=== PATIENT | male | born 1970 | race African-American/Black ===

== ENCOUNTER 2021-02-12 20:57 | Inpatient (IN) | payer OTHER ==
[2021-02-12 21:43] VITALS: BMI 21.2
[2021-02-12] MEDS ORDERED: MAGNESIUM CITRATE 300 ML BOTTLE PO PRN (23:26)
[2021-02-12] MEDS ORDERED: IBUPROFEN 400 MG TABLET (FP) PO PRN (23:26)
[2021-02-12] MEDS ORDERED: METHOCARBAMOL 500 MG TABLET PO PRN (23:26)
[2021-02-12] MEDS ORDERED: MAG HYDROX/AL HYDROX/SIMETH 30 ML UNIT-DOSE CUP PO PRN (23:26)
[2021-02-12] MEDS ORDERED: ONDANSETRON *ODT* 4 MG TABLET SL PRN (23:26)
[2021-02-12] MEDS ORDERED: MENTHOL/PHENOL 1 EACH UD MM PRN (23:26)
[2021-02-12] MEDS ORDERED: MAGNESIUM HYDROX 2400MG/30ML ORAL SUSPENSION 30 ML CUP PO PRN (23:26)
[2021-02-12] MEDS ORDERED: BISMUTH SUBSALICYLATE 524 MG/30 ML PO PRN (23:26)
[2021-02-12] MEDS ORDERED: hydrOXYzine PAMOATE 25 MG CAPSULE (FP) PO PRN (23:26)
[2021-02-12] MEDS ORDERED: ACETAMINOPHEN 325 MG TABLET (FP) PO PRN ×2 (23:26)
[2021-02-13] MEDS: PRENATAL VITAMINS W/ FOLIC ACID TABLET (FP) PO SCH (09:56)
[2021-02-13] MEDS ORDERED: cloNIDine HCL 0.1 MG TABLET PO PRN (15:45)
[2021-02-13] MEDS ORDERED: METHADONE HCL 10 MG TABLET (FOR DETOX USE ONLY) PO ONE (15:45)
[2021-02-13] MEDS: THIAMINE HCL 100 MG TABLET (FP) PO SCH (22:59)
[2021-02-13] MEDS: MELATONIN 5 MG TABLETS PO SCH (22:59)
[2021-02-14] MEDS ORDERED: METHADONE HCL 10 MG TABLET (FOR DETOX USE ONLY) ONE (09:43)
[2021-02-14] MEDS ORDERED: METHADONE HCL 5 MG TABLET (FOR DETOX USE ONLY) ONE (09:44)
[2021-02-14] MEDS ORDERED: METHADONE (DETOX) 20 MG, METHADONE (DETOX) 5 MG PO ONE (10:00)
[2021-02-14] MEDS: PRENATAL VITAMINS W/ FOLIC ACID TABLET (FP) PO SCH (10:14)
[2021-02-14] MEDS: THIAMINE HCL 100 MG TABLET (FP) PO SCH (22:14)
[2021-02-14] MEDS: MELATONIN 5 MG TABLETS PO SCH (22:14)
[2021-02-15] MEDS ORDERED: METHADONE HCL 10 MG TABLET (FOR DETOX USE ONLY) PO ONE (10:00)
[2021-02-15] MEDS: PRENATAL VITAMINS W/ FOLIC ACID TABLET (FP) PO SCH (10:13)
[2021-02-15 14:40] LABS: HEMOGLOBIN 10.2 GM/dL (11.7-16.9); MEAN CELL VOLUME 66.6 fl (80-96); MEAN PLT VOLUME 7.4 fl (7.5-11.1); PLATELET COUNT 567 K/MM3 (134-434); RDW 20.1 % (11.9-15.9); WHITE BLOOD COUNT 6.5 K/mm3 (4.0-10.0)
[2021-02-15 14:42] LABS: CHLORIDE 108 mmol/L (98-107); SODIUM 141 mmol/L (136-145)
[2021-02-15 14:45] LABS: ALBUMIN 3.2 g/dl (3.4-5.0); ANION GAP 6 MMOL/L (8-16); BLOOD UREA NITROGEN 17.2 mg/dL (7-18); CALCIUM 8.7 mg/dL (8.5-10.1); CO2 27 mmol/L (21-32); GLUCOSE,RANDOM 116 mg/dL (74-106)
[2021-02-15 14:48] LABS: CREATININE 0.9 mg/dL (0.55-1.3); SGOT/AST 10 U/L (15-37); SGPT/ALT 17 U/L (13-61)
[2021-02-15 14:50] LABS: BILIRUBIN,TOTAL < 0.1 mg/dL (0.2-1); TOT PROT 6.5 g/dl (6.4-8.2)
[2021-02-15 14:51] LABS: ALK PHOS 89 U/L (45-117)
[2021-02-15] MEDS ORDERED: MASKS NR ONE (15:13)
[2021-02-15] MEDS: THIAMINE HCL 100 MG TABLET (FP) PO SCH (23:05)
[2021-02-15] MEDS: MELATONIN 5 MG TABLETS PO SCH (23:06)
[2021-02-16 04:07] LABS: SARS-CoV-2 NAA Not Detected (Not Detected)
[2021-02-16] MEDS ORDERED: METHADONE HCL 5 MG TABLET (FOR DETOX USE ONLY) ONE (09:39)
[2021-02-16] MEDS ORDERED: METHADONE HCL 10 MG TABLET (FOR DETOX USE ONLY) ONE (09:39)
[2021-02-16] MEDS ORDERED: METHADONE (DETOX) 10 MG, METHADONE (DETOX) 5 MG PO ONE (10:00)
[2021-02-16] MEDS: PRENATAL VITAMINS W/ FOLIC ACID TABLET (FP) PO SCH (10:42)
[2021-02-16] MEDS: THIAMINE HCL 100 MG TABLET (FP) PO SCH (22:07)
[2021-02-16] MEDS: MELATONIN 5 MG TABLETS PO SCH (22:07)
[2021-02-17] MEDS ORDERED: METHADONE HCL 10 MG TABLET (FOR DETOX USE ONLY) PO ONE (10:00)
[2021-02-17] MEDS: PRENATAL VITAMINS W/ FOLIC ACID TABLET (FP) PO SCH (10:35)
[2021-02-17] MEDS: MELATONIN 5 MG TABLETS PO SCH (22:07)
[2021-02-17] MEDS: THIAMINE HCL 100 MG TABLET (FP) PO SCH (22:07)
[2021-02-18 05:44] VITALS: BP 136/65; PULSE 82; TEMP 96.4
[2021-02-18] MEDS ORDERED: METHADONE HCL 5 MG TABLET (FOR DETOX USE ONLY) PO ONE (06:00)
== END 2021-02-18 10:03 | disposition other institution (70) | DRG 773 ==
LOC: YASAS 20:57 → Y3N 23:30
PROVIDERS: ADMIT Allergy & Immunology; ATTEND Allergy & Immunology
PROC: HZ2ZZZZ Detoxification Services for Substance Abuse Treatment (ICD-10-PCS; principal; 2021-02-12)
DX: F11.23 Opioid dependence with withdrawal (principal); F10.10 Alcohol abuse, uncomplicated; F14.20 Cocaine dependence, uncomplicated; F19.220 Other psychoactive substance dependence with intoxication, uncomplicated
CPT/HCPCS: 36415; 80053; 85027; 86593; 86780; C9803; U0003; U0005

== ENCOUNTER 2022-07-04 00:05 | Inpatient (IN) | payer OTHER ==
[2022-07-04] MEDS ORDERED: VANCOMYCIN 1 GM in D5W (PRE-DOCKED) 1,000 MG/250 ML IVPB ONE (01:23)
[2022-07-04 02:22] LABS: BASO % 2.1 % (0-2.0); EOS % 3.1 % (0-4.5); HEMATOCRIT 32.5 % (35.4-49); HEMOGLOBIN 9.9 GM/dL (11.7-16.9); LYMPH % 22.9 % (8-40); MCH 20.1 pg (25.7-33.7); MCHC 30.6 g/dl (32.0-35.9); MEAN CELL VOLUME 65.7 fl (80-96); MEAN PLT VOLUME 6.8 fl (7.5-11.1); MONO % 6.8 % (3.8-10.2); NEUT % 65.1 % (42.8-82.8); PLATELET COUNT 683 10^3/uL (134-434); RBC 4.95 M/mm3 (4.00-5.60); RDW 19.3 % (11.9-15.9); WHITE BLOOD COUNT 8.2 K/mm3 (4.0-10.0)
[2022-07-04] MEDS ORDERED: VANCOMYCIN/WATER 1,250 MG/250 ML BAG IVPB ONE (02:35)
[2022-07-04] MEDS ORDERED: VANCOMYCIN/WATER 1250 MG 1,250 MG/250 ML BAG IVPB ONE (02:42)
[2022-07-04 02:44] LABS: ALBUMIN 2.5 g/dl (3.4-5.0); CALCIUM 8.1 mg/dL (8.5-10.1)
[2022-07-04 02:46] LABS: BLOOD UREA NITROGEN 21.8 mg/dL (7-18)
[2022-07-04 02:47] LABS: CREATININE 1.3 mg/dL (0.55-1.3)
[2022-07-04 02:49] LABS: BILIRUBIN,TOTAL 0.2 mg/dL (0.2-1); TOT PROT 5.7 g/dl (6.4-8.2)
[2022-07-04 05:12] LABS: ANISOCYTOSIS 2+; MACROCYTOSIS 0; OVALOCYTE 2+; TARGET CELLS 2+; TEAR DROP CELLS 1+
[2022-07-04] MEDS ORDERED: LORazepam 1 MG TABLET PO PRN (06:37)
[2022-07-04] MEDS ORDERED: LORazepam 1 MG TABLET PO SCH (06:37)
[2022-07-04] MEDS ORDERED: ACETAMINOPHEN 1000 MG/100 ML BAG IVPB PRN ×3 (08:33→10:46)
[2022-07-04] MEDS ORDERED: DEXTROSE 5%-LACTATED RINGERS 1,000 ML IV SCH (08:45)
[2022-07-04] MEDS ORDERED: morphine CARPU-JECT 2 MG/1 ML DISP.SYRIN IVPUSH PRN (09:32)
[2022-07-04] MEDS ORDERED: morphine SULFATE 4 MG/ML VIAL IVPUSH PRN (09:56)
[2022-07-04] MEDS ORDERED: MAGNESIUM CITRATE 300 ML BOTTLE PO PRN (10:41)
[2022-07-04] MEDS ORDERED: BENZOCAINE/MENTHOL (CHLORASEPTIC ) LOZENGE MM PRN (10:41)
[2022-07-04] MEDS ORDERED: MAG HYDROX/AL HYDROX/SIMETH 30 ML UNIT-DOSE CUP PO PRN (10:41)
[2022-07-04] MEDS ORDERED: PROCHLORPERAZINE MALEATE 5 MG TABLET PO PRN (10:41)
[2022-07-04] MEDS ORDERED: MAGNESIUM HYDROX 2400MG/30ML ORAL SUSPENSION 30 ML CUP PO PRN (10:41)
[2022-07-04] MEDS ORDERED: DICYCLOMINE HCL 10 MG CAPSULE PO PRN (10:41)
[2022-07-04] MEDS ORDERED: BISMUTH SUBSALICYLATE 524 MG/30 ML PO PRN (10:41)
[2022-07-04] MEDS ORDERED: KETOROLAC TROMETHAMINE 15 MG/ML VIAL IVPUSH PRN (10:44)
[2022-07-04 11:11] LABS: RETICULOCYTES 1.28 % (0.5-1.5)
[2022-07-04] MEDS ORDERED: cloNIDine HCL 0.1 MG TABLET PO PRN (12:39)
[2022-07-04] MEDS ORDERED: methaDONE HCL 10 MG TABLET ONE (16:57)
[2022-07-04] MEDS ORDERED: ceFAZolin SODIUM 1 GM VIAL ONE (16:58)
[2022-07-04] MEDS ORDERED: methaDONE HCL 10 MG TABLET PO ONE (17:00)
[2022-07-04] MEDS: CEFAZOLIN 1 GM in DEXTROSE 5%-WATER - 50 ML IVPB SCH (17:09)
[2022-07-04] MEDS ORDERED: THIAMINE HCL 100 MG TABLET (FP) ONE (22:04)
[2022-07-04] MEDS ORDERED: MELATONIN 5 MG TABLETS ONE (22:04)
[2022-07-04] MEDS: THIAMINE HCL 100 MG TABLET (FP) PO SCH (22:12)
[2022-07-04] MEDS: MELATONIN 5 MG TABLETS PO SCH (22:12)
[2022-07-05] MEDS: CEFAZOLIN 1 GM in DEXTROSE 5%-WATER - 50 ML IVPB SCH ×3 (03:30→17:19)
[2022-07-05 04:34] VITALS: BMI 22.8
[2022-07-05] MEDS ORDERED: LORazepam 1 MG TABLET PO SCH (05:00)
[2022-07-05] MEDS: PRENATAL VITAMINS W/ FOLIC ACID TABLET (FP) PO SCH (09:17)
[2022-07-05] MEDS ORDERED: VANCOMYCIN/WATER 1,250 MG/250 ML BAG IVPB SCH (10:00)
[2022-07-05 11:47] LABS: HEMATOCRIT 32.3 % (35.4-49); HEMOGLOBIN 9.8 GM/dL (11.7-16.9); MCHC 30.5 g/dl (32.0-35.9); MEAN CELL VOLUME 65.7 fl (80-96); PLATELET COUNT 698 10^3/uL (134-434); RBC 4.92 M/mm3 (4.00-5.60); RDW 18.9 % (11.9-15.9); WHITE BLOOD COUNT 8.2 K/mm3 (4.0-10.0)
[2022-07-05 12:09] LABS: CALCIUM 7.9 mg/dL (8.5-10.1)
[2022-07-05 12:10] LABS: BLOOD UREA NITROGEN 18.7 mg/dL (7-18); MAGNESIUM 1.8 mg/dL (1.8-2.4)
[2022-07-05 12:13] LABS: CREATININE 0.9 mg/dL (0.55-1.3); PHOSPHOROUS 2.4 mg/dL (2.5-4.9)
[2022-07-05] MEDS ORDERED: NAPH,MB-DB/K PH,MBDB POWDER PACKET PO ONE (13:21)
[2022-07-05 18:32] LABS: ANISOCYTOSIS 2+; MACROCYTOSIS 0; TARGET CELLS 1+
[2022-07-05] MEDS: THIAMINE HCL 100 MG TABLET (FP) PO SCH (21:40)
[2022-07-05] MEDS: MELATONIN 5 MG TABLETS PO SCH (21:40)
[2022-07-06] MEDS ORDERED: LORazepam 0.5 MG TABLET PO PRN
[2022-07-06] MEDS: CEFAZOLIN 1 GM in DEXTROSE 5%-WATER - 50 ML IVPB SCH ×3 (01:31→18:20)
[2022-07-06] MEDS ORDERED: LORazepam 0.5 MG TABLET PO SCH (05:00)
[2022-07-06 09:36] LABS: HEMATOCRIT 32.3 % (35.4-49); HEMOGLOBIN 9.8 GM/dL (11.7-16.9); MCH 20.1 pg (25.7-33.7); MCHC 30.4 g/dl (32.0-35.9); MEAN CELL VOLUME 66.2 fl (80-96); MEAN PLT VOLUME 7.1 fl (7.5-11.1); PLATELET COUNT 645 10^3/uL (134-434); RBC 4.89 M/mm3 (4.00-5.60); RDW 19.2 % (11.9-15.9); WHITE BLOOD COUNT 7.4 K/mm3 (4.0-10.0)
[2022-07-06 09:53] LABS: ALBUMIN 2.2 g/dl (3.4-5.0)
[2022-07-06 09:55] LABS: BLOOD UREA NITROGEN 15.3 mg/dL (7-18); CALCIUM 7.8 mg/dL (8.5-10.1); MAGNESIUM 1.9 mg/dL (1.8-2.4)
[2022-07-06 09:56] LABS: PHOSPHOROUS 3.2 mg/dL (2.5-4.9)
[2022-07-06 09:57] LABS: BILIRUBIN,TOTAL 0.2 mg/dL (0.2-1); TOT PROT 5.4 g/dl (6.4-8.2)
[2022-07-06] MEDS ORDERED: methaDONE HCL 10 MG TABLET PO ONE (10:00)
[2022-07-06] MEDS: PRENATAL VITAMINS W/ FOLIC ACID TABLET (FP) PO SCH (10:19)
[2022-07-06] MEDS: ENOXAPARIN NA (PORCINE) 40 MG/0.4 ML DISP.SYRIN SQ SCH ×2 (10:19→10:41)
[2022-07-06] MEDS: THIAMINE HCL 100 MG TABLET (FP) PO SCH (21:33)
[2022-07-06] MEDS: MELATONIN 5 MG TABLETS PO SCH (21:33)
[2022-07-07] MEDS: CEFAZOLIN 1 GM in DEXTROSE 5%-WATER - 50 ML IVPB SCH ×2 (01:47→09:48)
[2022-07-07] MEDS ORDERED: LORazepam 0.5 MG TABLET PO ONE (05:00)
[2022-07-07] MEDS: PRENATAL VITAMINS W/ FOLIC ACID TABLET (FP) PO SCH (09:50)
[2022-07-07] MEDS: ENOXAPARIN NA (PORCINE) 40 MG/0.4 ML DISP.SYRIN SQ SCH (10:07)
[2022-07-07] MEDS ORDERED: IRON SUCROSE INJECTION 200 MG in SODIUM CHLORIDE 90 ML IVPB ONE (14:06)
[2022-07-07 16:10] LABS: HEMATOCRIT 30.2 % (35.4-49); HEMOGLOBIN 9.5 GM/dL (11.7-16.9); MCH 20.7 pg (25.7-33.7); MCHC 31.6 g/dl (32.0-35.9); MEAN CELL VOLUME 65.5 fl (80-96); MEAN PLT VOLUME 6.6 fl (7.5-11.1); PLATELET COUNT 623 10^3/uL (134-434); RBC 4.62 M/mm3 (4.00-5.60); RDW 19.1 % (11.9-15.9); WHITE BLOOD COUNT 8.3 K/mm3 (4.0-10.0)
[2022-07-07 16:32] LABS: CALCIUM 8.1 mg/dL (8.5-10.1)
[2022-07-07 16:33] LABS: ALBUMIN 2.4 g/dl (3.4-5.0); BLOOD UREA NITROGEN 21.1 mg/dL (7-18)
[2022-07-07 16:38] LABS: BILIRUBIN,TOTAL 0.1 mg/dL (0.2-1); TOT PROT 5.7 g/dl (6.4-8.2)
[2022-07-07] MEDS: THIAMINE HCL 100 MG TABLET (FP) PO SCH (22:18)
[2022-07-07] MEDS: MELATONIN 5 MG TABLETS PO SCH (22:18)
[2022-07-08 00:52] LABS: PROTHROMBIN TIME (PATIENT) 11.5 SEC (9.7-13.0)
[2022-07-08 00:55] LABS: ACTIVATED PTT 30.8 SECONDS (25.2-36.5)
[2022-07-08] MEDS: PRENATAL VITAMINS W/ FOLIC ACID TABLET (FP) PO SCH (09:42)
[2022-07-08] MEDS: ENOXAPARIN NA (PORCINE) 40 MG/0.4 ML DISP.SYRIN SQ SCH (09:42)
[2022-07-08] MEDS ORDERED: methaDONE HCL 10 MG TABLET PO ONE (10:00)
[2022-07-08] MEDS ORDERED: ROPIVACAINE HCL 0.5% 30ML VIAL ONE (14:30)
[2022-07-08] MEDS ORDERED: MIDAZOLAM HCL 2 MG/2 ML SINGLE DOSE VIAL ONE (14:35)
[2022-07-08] MEDS ORDERED: PROPOFOL 20 ML ONE ×4 (15:09→16:21)
[2022-07-08] MEDS ORDERED: ceFAZolin SODIUM 1 GM VIAL ONE ×2 (15:19→15:42)
[2022-07-08] MEDS ORDERED: ceFAZolin SODIUM 1 GM VIAL IVPB ONE ×2 (15:20→15:45)
[2022-07-08] MEDS ORDERED: BENZOCAINE/MENTHOL (CHLORASEPTIC ) LOZENGE MM PRN (17:14)
[2022-07-08] MEDS ORDERED: ONDANSETRON 4 MG/2 ML VIAL IVPUSH PRN (17:14)
[2022-07-08] MEDS ORDERED: MAGNESIUM HYDROX 2400MG/30ML ORAL SUSPENSION 30 ML CUP PO PRN (17:14)
[2022-07-08] MEDS ORDERED: MAG HYDROX/AL HYDROX/SIMETH 30 ML UNIT-DOSE CUP PO PRN (17:14)
[2022-07-08] MEDS ORDERED: PROCHLORPERAZINE MALEATE 5 MG TABLET PO PRN (17:14)
[2022-07-08] MEDS ORDERED: PROMETHAZINE HCL 25 MG/1 ML VIAL IVPUSH PRN (17:14)
[2022-07-08] MEDS ORDERED: DICYCLOMINE HCL 10 MG CAPSULE PO PRN (17:14)
[2022-07-08] MEDS ORDERED: MAGNESIUM CITRATE 300 ML BOTTLE PO PRN (17:14)
[2022-07-08] MEDS ORDERED: LACTATED RINGERS SOLUTION 1,000 ML IV SCH (17:15)
[2022-07-08] MEDS: MELATONIN 5 MG TABLETS PO SCH (21:14)
[2022-07-08] MEDS: THIAMINE HCL 100 MG TABLET (FP) PO SCH (21:14)
[2022-07-08] MEDS: ACETAMINOPHEN 1000 MG/100 ML BAG IVPB PRN (22:33)
[2022-07-08] MEDS: CEFAZOLIN SODIUM 2 GM in DEXTROSE 5%-WATER 100 ML IVPB SCH (22:37)
[2022-07-08] MEDS ORDERED: ceFAZolin 2 GRAM PREMIX BAG IVPB SCH (23:00)
[2022-07-09] MEDS: ACETAMINOPHEN 1000 MG/100 ML BAG IVPB PRN ×2 (05:05→11:40)
[2022-07-09] MEDS: CEFAZOLIN SODIUM 2 GM in DEXTROSE 5%-WATER 100 ML IVPB SCH (06:14)
[2022-07-09 11:02] LABS: BASO % 0.8 % (0-2.0); EOS % 0.7 % (0-4.5); HEMATOCRIT 32.9 % (35.4-49); HEMOGLOBIN 9.9 GM/dL (11.7-16.9); LYMPH % 9.1 % (8-40); MEAN PLT VOLUME 6.8 fl (7.5-11.1); MONO % 9.5 % (3.8-10.2); NEUT % 79.9 % (42.8-82.8); PLATELET COUNT 706 10^3/uL (134-434); RBC 4.99 M/mm3 (4.00-5.60); RDW 19.2 % (11.9-15.9); WHITE BLOOD COUNT 14.6 K/mm3 (4.0-10.0)
[2022-07-09 11:07] LABS: MCH 19.8 pg (25.7-33.7)
[2022-07-09 11:26] LABS: ALBUMIN 2.8 g/dl (3.4-5.0); BLOOD UREA NITROGEN 16.6 mg/dL (7-18); CALCIUM 8.4 mg/dL (8.5-10.1)
[2022-07-09 11:27] LABS: MAGNESIUM 1.6 mg/dL (1.8-2.4)
[2022-07-09 11:29] LABS: CREATININE 0.9 mg/dL (0.55-1.3); PHOSPHOROUS 2.3 mg/dL (2.5-4.9)
[2022-07-09 11:30] LABS: BILIRUBIN,TOTAL 0.2 mg/dL (0.2-1); TOT PROT 6.2 g/dl (6.4-8.2)
[2022-07-09] MEDS: PRENATAL VITAMINS W/ FOLIC ACID TABLET (FP) PO SCH (11:40)
[2022-07-09] MEDS: ENOXAPARIN NA (PORCINE) 40 MG/0.4 ML DISP.SYRIN SQ SCH (11:42)
[2022-07-09 11:58] LABS: ANISOCYTOSIS 3+; MACROCYTOSIS 0; TARGET CELLS 2+
[2022-07-09] MEDS ORDERED: SODIUM PHOSPHATE - 20 MM in SODIUM CHLORIDE 250 ML IVPB ONE (17:47)
[2022-07-09] MEDS ORDERED: MAGNESIUM 1GM/D5W 100ML - 100 ML IVPB IVPB ONE (17:49)
[2022-07-09] MEDS: THIAMINE HCL 100 MG TABLET (FP) PO SCH (21:19)
[2022-07-09] MEDS: MELATONIN 5 MG TABLETS PO SCH (21:19)
[2022-07-10] MEDS: ENOXAPARIN NA (PORCINE) 40 MG/0.4 ML DISP.SYRIN SQ SCH (10:11)
[2022-07-10] MEDS: PRENATAL VITAMINS W/ FOLIC ACID TABLET (FP) PO SCH (10:12)
[2022-07-10 10:32] LABS: BASO % 0.6 % (0-2.0); EOS % 1.4 % (0-4.5); HEMATOCRIT 32.4 % (35.4-49); HEMOGLOBIN 9.8 GM/dL (11.7-16.9); MCHC 30.4 g/dl (32.0-35.9); MEAN CELL VOLUME 65.9 fl (80-96); MEAN PLT VOLUME 6.9 fl (7.5-11.1); MONO % 10.6 % (3.8-10.2); NEUT % 77.4 % (42.8-82.8); PLATELET COUNT 740 10^3/uL (134-434); RBC 4.92 M/mm3 (4.00-5.60); RDW 19.1 % (11.9-15.9); WHITE BLOOD COUNT 15.1 K/mm3 (4.0-10.0)
[2022-07-10 11:02] LABS: ALBUMIN 2.7 g/dl (3.4-5.0); BLOOD UREA NITROGEN 11.7 mg/dL (7-18)
[2022-07-10 11:03] LABS: CALCIUM 8.4 mg/dL (8.5-10.1); MAGNESIUM 2.1 mg/dL (1.8-2.4)
[2022-07-10 11:05] LABS: CREATININE 0.8 mg/dL (0.55-1.3); PHOSPHOROUS 2.9 mg/dL (2.5-4.9)
[2022-07-10 11:07] LABS: BILIRUBIN,TOTAL 0.3 mg/dL (0.2-1); TOT PROT 6.5 g/dl (6.4-8.2)
[2022-07-10 15:12] LABS: ALBUMIN % 0 % (.); TOTAL PROTEIN, URINE <4.0 mg/dL (Not Estab.)
[2022-07-10] MEDS: THIAMINE HCL 100 MG TABLET (FP) PO SCH (22:39)
[2022-07-10] MEDS: MELATONIN 5 MG TABLETS PO SCH (22:39)
[2022-07-11 09:01] VITALS: PULSE 101; RESP 18
[2022-07-11] MEDS: PRENATAL VITAMINS W/ FOLIC ACID TABLET (FP) PO SCH (13:54)
[2022-07-11] MEDS: ENOXAPARIN NA (PORCINE) 40 MG/0.4 ML DISP.SYRIN SQ SCH (13:54)
[2022-07-11 15:33] VITALS: BP 126/70; TEMP 98
== END 2022-07-11 16:55 | disposition other institution (70) | DRG 315 ==
LOC: JER 00:05 → JERBED 05:11 → J5S 07-05 02:46
PROVIDERS: ADMIT Internal Medicine; ATTEND Internal Medicine
PROC: 2W3LX1Z Immobilization of Right Lower Extremity using Splint (ICD-10-PCS; 2022-07-04)
PROC: 0PSH04Z Reposition Right Radius with Internal Fixation Device, Open Approach (ICD-10-PCS; principal; 2022-07-08 15:25)
DX: S52.391A Other fracture of shaft of radius, right arm, initial encounter for closed fracture (principal); L03.113 Cellulitis of right upper limb; F11.120 Opioid abuse with intoxication, uncomplicated; D75.839 Thrombocytosis, unspecified; M21.331 Wrist drop, right wrist; D50.9 Iron deficiency anemia, unspecified; H02.401 Unspecified ptosis of right eyelid; F14.10 Cocaine abuse, uncomplicated; Y93.89 Activity, other specified; W19.XXXA Unspecified fall, initial encounter; Y92.89 Other specified places as the place of occurrence of the external cause; Y99.8 Other external cause status
CPT/HCPCS: 36415; 73090-TC-RT-FY; 73110-TC-RT-FY; 73130-TC-RT-FY; 76000-TC-FY; 80048; 80053; 80061; 82272; 82607; 82728; 83021; 83036; 83540; 83550; 83735; 84100; 84155; 84156; 84165; 84166; 85025; 85027; 85045; 85610; 85660; 85730; 86850; 86900; 86901; 87040; 87070; 87075; 87205; 93005; 93010; 94760; 99285-25; C1713; C9803-CS; J1756; U0003; U0005

== ENCOUNTER 2022-07-11 16:52 | Inpatient (IN) | payer OTHER ==
[2022-07-11 17:42] VITALS: BMI 22.6
[2022-07-11] MEDS ORDERED: guaiFENesin 200 MG/10 ML 10 ML UNIT-DOSE CUPS PO PRN (18:04)
[2022-07-11] MEDS ORDERED: MAGNESIUM HYDROX 2400MG/30ML ORAL SUSPENSION 30 ML CUP PO PRN (18:04)
[2022-07-11] MEDS ORDERED: LOPERAMIDE HCL 2 MG CAPSULE PO PRN (18:04)
[2022-07-11] MEDS ORDERED: MAGNESIUM CITRATE 300 ML BOTTLE PO PRN (18:04)
[2022-07-11] MEDS ORDERED: P-EPHED 60MG/TRIPROLIDI 2.5MG TABLET PO PRN (18:04)
[2022-07-11] MEDS ORDERED: ACETAMINOPHEN 325 MG TABLET (FP) PO PRN ×2 (18:04→18:11)
[2022-07-11] MEDS ORDERED: BENZOCAINE/MENTHOL (CHLORASEPTIC ) LOZENGE MM PRN (18:04)
[2022-07-11] MEDS ORDERED: MAG HYDROX/AL HYDROX/SIMETH 30 ML UNIT-DOSE CUP PO PRN (18:04)
[2022-07-11] MEDS: ASPIRIN 81 MG CHEWABLE TABLETS PO SCH (21:33)
[2022-07-11] MEDS: MELATONIN 5 MG TABLETS PO PRN (21:33)
[2022-07-11] MEDS: THIAMINE HCL 100 MG TABLET (FP) PO SCH (21:33)
[2022-07-11] MEDS: FERROUS SO4 325 MG TABLET (FP) PO SCH (21:33)
[2022-07-11] MEDS: SILVER SULFADIAZINE 1% TOP CREAM 400 GM JAR TP SCH (23:00)
[2022-07-12] MEDS: FERROUS SO4 325 MG TABLET (FP) PO SCH ×3 (07:37→16:51)
[2022-07-12] MEDS: PRENATAL VITAMINS W/ FOLIC ACID TABLET (FP) PO SCH (10:13)
[2022-07-12] MEDS: ASPIRIN 81 MG CHEWABLE TABLETS PO SCH (10:14)
[2022-07-12] MEDS: SILVER SULFADIAZINE 1% TOP CREAM 400 GM JAR TP SCH (10:15)
[2022-07-12] MEDS: MELATONIN 5 MG TABLETS PO PRN (21:28)
[2022-07-12] MEDS: THIAMINE HCL 100 MG TABLET (FP) PO SCH (21:28)
[2022-07-13] MEDS: FERROUS SO4 325 MG TABLET (FP) PO SCH ×3 (07:03→17:30)
[2022-07-13] MEDS: IBUPROFEN 400 MG TABLET (FP) PO PRN (11:03)
[2022-07-13] MEDS: PRENATAL VITAMINS W/ FOLIC ACID TABLET (FP) PO SCH (11:03)
[2022-07-13] MEDS: ASPIRIN 81 MG CHEWABLE TABLETS PO SCH (11:03)
[2022-07-13] MEDS: THIAMINE HCL 100 MG TABLET (FP) PO SCH (22:06)
[2022-07-14] MEDS: FERROUS SO4 325 MG TABLET (FP) PO SCH ×3 (07:16→17:35)
[2022-07-14] MEDS: PRENATAL VITAMINS W/ FOLIC ACID TABLET (FP) PO SCH (09:46)
[2022-07-14] MEDS: ASPIRIN 81 MG CHEWABLE TABLETS PO SCH (09:46)
[2022-07-14] MEDS: THIAMINE HCL 100 MG TABLET (FP) PO SCH (21:30)
[2022-07-14] MEDS: MELATONIN 5 MG TABLETS PO PRN (21:30)
[2022-07-15] MEDS: FERROUS SO4 325 MG TABLET (FP) PO SCH ×3 (07:23→17:18)
[2022-07-15] MEDS: ASPIRIN 81 MG CHEWABLE TABLETS PO SCH (11:14)
[2022-07-15] MEDS: PRENATAL VITAMINS W/ FOLIC ACID TABLET (FP) PO SCH (11:14)
[2022-07-15] MEDS: THIAMINE HCL 100 MG TABLET (FP) PO SCH (21:26)
[2022-07-16 07:00] VITALS: RESP 18
[2022-07-16] MEDS: FERROUS SO4 325 MG TABLET (FP) PO SCH ×3 (08:14→17:43)
[2022-07-16] MEDS: ASPIRIN 81 MG CHEWABLE TABLETS PO SCH (09:36)
[2022-07-16] MEDS: PRENATAL VITAMINS W/ FOLIC ACID TABLET (FP) PO SCH (09:36)
[2022-07-16] MEDS: THIAMINE HCL 100 MG TABLET (FP) PO SCH (21:39)
[2022-07-16] MEDS: MELATONIN 5 MG TABLETS PO PRN (21:40)
[2022-07-17] MEDS: FERROUS SO4 325 MG TABLET (FP) PO SCH ×3 (07:14→17:50)
[2022-07-17] MEDS: PRENATAL VITAMINS W/ FOLIC ACID TABLET (FP) PO SCH (10:58)
[2022-07-17] MEDS: ASPIRIN 81 MG CHEWABLE TABLETS PO SCH (10:58)
[2022-07-17] MEDS: THIAMINE HCL 100 MG TABLET (FP) PO SCH (21:08)
[2022-07-18] MEDS: FERROUS SO4 325 MG TABLET (FP) PO SCH ×3 (07:04→17:04)
[2022-07-18] MEDS: ASPIRIN 81 MG CHEWABLE TABLETS PO SCH (09:41)
[2022-07-18] MEDS: PRENATAL VITAMINS W/ FOLIC ACID TABLET (FP) PO SCH (09:41)
[2022-07-18] MEDS: IBUPROFEN 400 MG TABLET (FP) PO PRN (11:32)
[2022-07-18] MEDS: THIAMINE HCL 100 MG TABLET (FP) PO SCH (21:13)
[2022-07-18] MEDS: MELATONIN 5 MG TABLETS PO PRN (21:13)
[2022-07-19 06:40] VITALS: BP 123/82; PULSE 101; TEMP 98.9
[2022-07-19] MEDS: FERROUS SO4 325 MG TABLET (FP) PO SCH (07:01)
== END 2022-07-19 10:05 | disposition home or self-care (01) | DRG 772 ==
LOC: YASAS 16:52 → Y3W 19:25
PROVIDERS: ADMIT Allergy & Immunology; ATTEND Surgery
PROC: HZ42ZZZ Group Counseling for Substance Abuse Treatment, Cognitive-Behavioral (ICD-10-PCS; principal; 2022-07-11)
DX: F11.20 Opioid dependence, uncomplicated (principal); F14.20 Cocaine dependence, uncomplicated; L03.113 Cellulitis of right upper limb; S52.591D Other fractures of lower end of right radius, subsequent encounter for closed fracture with routine healing; X58.XXXD Exposure to other specified factors, subsequent encounter
CPT/HCPCS: C9803-CS; U0003; U0005

== ENCOUNTER 2022-07-16 12:50 | Emergency (ER) | payer OTHER ==
[2022-07-16 13:12] VITALS: BP 126/80; PULSE 76; RESP 19; TEMP 97.8; BMI 30.4
== END 2022-07-16 16:43 | disposition home or self-care (01) ==
LOC: JER 12:50
DX: R20.2 Paresthesia of skin (principal); Z48.01 Encounter for change or removal of surgical wound dressing
CPT/HCPCS: 93971; 99283-25

== ENCOUNTER 2022-07-19 14:23 | Inpatient (IN) | payer OTHER ==
[2022-07-19 15:44] VITALS: BMI 24.3
[2022-07-19] MEDS ORDERED: guaiFENesin 200 MG/10 ML 10 ML UNIT-DOSE CUPS PO PRN (16:32)
[2022-07-19] MEDS ORDERED: MAGNESIUM HYDROX 2400MG/30ML ORAL SUSPENSION 30 ML CUP PO PRN (16:32)
[2022-07-19] MEDS ORDERED: P-EPHED 60MG/TRIPROLIDI 2.5MG TABLET PO PRN (16:32)
[2022-07-19] MEDS ORDERED: LOPERAMIDE HCL 2 MG CAPSULE PO PRN (16:32)
[2022-07-19] MEDS ORDERED: MAGNESIUM CITRATE 300 ML BOTTLE PO PRN (16:32)
[2022-07-19] MEDS ORDERED: NICOTINE 10 MG CARTRIDGE (INHALER) IH PRN (16:32)
[2022-07-19] MEDS ORDERED: MAG HYDROX/AL HYDROX/SIMETH 30 ML UNIT-DOSE CUP PO PRN (16:32)
[2022-07-19] MEDS: MELATONIN 5 MG TABLETS PO SCH (21:13)
[2022-07-19] MEDS: THIAMINE HCL 100 MG TABLET (FP) PO SCH (21:13)
[2022-07-19] MEDS: hydrOXYzine PAMOATE 25 MG CAPSULE (FP) PO PRN (21:13)
[2022-07-20 09:29] LABS: CALCIUM 8.8 mg/dL (8.5-10.1)
[2022-07-20 09:30] LABS: HEMATOCRIT 33.3 % (35.4-49); HEMOGLOBIN 10.6 GM/dL (11.7-16.9); MCH 21.6 pg (25.7-33.7); MCHC 31.8 g/dl (32.0-35.9); MEAN CELL VOLUME 67.9 fl (80-96); MEAN PLT VOLUME 6.6 fl (7.5-11.1); PLATELET COUNT 838 10^3/uL (134-434); RDW 19.8 % (11.9-15.9); WHITE BLOOD COUNT 10.4 K/mm3 (4.0-10.0)
[2022-07-20 09:31] LABS: ALBUMIN 3.1 g/dl (3.4-5.0); BLOOD UREA NITROGEN 23.1 mg/dL (7-18)
[2022-07-20 09:34] LABS: CREATININE 0.9 mg/dL (0.55-1.3)
[2022-07-20 09:36] LABS: BILIRUBIN,TOTAL 0.1 mg/dL (0.2-1)
[2022-07-20] MEDS: PRENATAL VITAMINS W/ FOLIC ACID TABLET (FP) PO SCH (10:04)
[2022-07-20] MEDS: ASPIRIN 325 MG TABLET PO SCH ×2 (13:16→16:00)
[2022-07-20] MEDS: MELATONIN 5 MG TABLETS PO SCH (21:05)
[2022-07-20] MEDS: THIAMINE HCL 100 MG TABLET (FP) PO SCH (21:05)
[2022-07-21] MEDS: PRENATAL VITAMINS W/ FOLIC ACID TABLET (FP) PO SCH (09:49)
[2022-07-21] MEDS: ASPIRIN 325 MG TABLET PO SCH (09:49)
[2022-07-21] MEDS: MELATONIN 5 MG TABLETS PO SCH (21:20)
[2022-07-21] MEDS: THIAMINE HCL 100 MG TABLET (FP) PO SCH (21:20)
[2022-07-21 21:21] LABS: URINE APPEARANCE CLOUDY; URINE BILIRUBIN NEGATIVE (NEGATIVE); URINE COLOR YELLOW; URINE GLUCOSE (UA) NEGATIVE (NEGATIVE); URINE KETONE TRACE (NEGATIVE); URINE LEUK ESTERASE NEGATIVE (NEGATIVE); URINE NITRITE NEGATIVE (NEGATIVE); URINE PROTEIN NEGATIVE (NEGATIVE); URINE UROBILINOGEN 0.2 mg/dL (0.2-1.0)
[2022-07-22] MEDS: PRENATAL VITAMINS W/ FOLIC ACID TABLET (FP) PO SCH (09:35)
[2022-07-22] MEDS: ASPIRIN 325 MG TABLET PO SCH (09:36)
[2022-07-22 12:24] LABS: HEMATOCRIT 35.1 % (35.4-49); HEMOGLOBIN 10.9 GM/dL (11.7-16.9); MCH 21.1 pg (25.7-33.7); MEAN PLT VOLUME 6.4 fl (7.5-11.1); PLATELET COUNT 823 10^3/uL (134-434); RBC 5.17 M/mm3 (4.00-5.60); RDW 21.1 % (11.9-15.9); WHITE BLOOD COUNT 10.6 K/mm3 (4.0-10.0)
[2022-07-22] MEDS: ACETAMINOPHEN 325 MG TABLET (FP) PO PRN (15:06)
[2022-07-22] MEDS: THIAMINE HCL 100 MG TABLET (FP) PO SCH (21:06)
[2022-07-22] MEDS: MELATONIN 5 MG TABLETS PO SCH (21:06)
[2022-07-23] MEDS: PRENATAL VITAMINS W/ FOLIC ACID TABLET (FP) PO SCH (09:19)
[2022-07-23] MEDS: ASPIRIN 325 MG TABLET PO SCH (09:20)
[2022-07-23] MEDS: MELATONIN 5 MG TABLETS PO SCH (21:26)
[2022-07-23] MEDS: THIAMINE HCL 100 MG TABLET (FP) PO SCH (21:26)
[2022-07-24 06:42] VITALS: RESP 18
[2022-07-24] MEDS: ASPIRIN 325 MG TABLET PO SCH (10:30)
[2022-07-24] MEDS: PRENATAL VITAMINS W/ FOLIC ACID TABLET (FP) PO SCH (10:30)
[2022-07-24] MEDS: MINERAL OIL/PETROLAT/WATER TOPICAL CREAM 113 GM JAR TP PRN (17:05)
[2022-07-24] MEDS: THIAMINE HCL 100 MG TABLET (FP) PO SCH (21:36)
[2022-07-24] MEDS: MELATONIN 5 MG TABLETS PO SCH (21:36)
[2022-07-25] MEDS: IBUPROFEN 400 MG TABLET (FP) PO PRN (03:23)
[2022-07-25] MEDS: PRENATAL VITAMINS W/ FOLIC ACID TABLET (FP) PO SCH (09:43)
[2022-07-25] MEDS: ASPIRIN 325 MG TABLET PO SCH (09:43)
[2022-07-25] MEDS: THIAMINE HCL 100 MG TABLET (FP) PO SCH (21:23)
[2022-07-25] MEDS: MELATONIN 5 MG TABLETS PO SCH (21:23)
[2022-07-26] MEDS: IBUPROFEN 400 MG TABLET (FP) PO PRN (03:54)
[2022-07-26] MEDS: hydrOXYzine PAMOATE 25 MG CAPSULE (FP) PO PRN (03:55)
[2022-07-26] MEDS: ASPIRIN 325 MG TABLET PO SCH (10:20)
[2022-07-26] MEDS: PRENATAL VITAMINS W/ FOLIC ACID TABLET (FP) PO SCH (10:20)
[2022-07-26] MEDS: THIAMINE HCL 100 MG TABLET (FP) PO SCH (21:26)
[2022-07-26] MEDS: MELATONIN 5 MG TABLETS PO SCH (21:26)
[2022-07-26] MEDS: MINERAL OIL/PETROLAT/WATER TOPICAL CREAM 113 GM JAR TP PRN (21:27)
[2022-07-27] MEDS: ASPIRIN 325 MG TABLET PO SCH (10:28)
[2022-07-27] MEDS: PRENATAL VITAMINS W/ FOLIC ACID TABLET (FP) PO SCH (10:28)
[2022-07-27] MEDS: MELATONIN 5 MG TABLETS PO SCH (21:31)
[2022-07-27] MEDS: THIAMINE HCL 100 MG TABLET (FP) PO SCH (21:31)
[2022-07-28] MEDS: IBUPROFEN 400 MG TABLET (FP) PO PRN ×2 (01:29→21:59)
[2022-07-28] MEDS: ASPIRIN 325 MG TABLET PO SCH (10:32)
[2022-07-28] MEDS: PRENATAL VITAMINS W/ FOLIC ACID TABLET (FP) PO SCH (10:32)
[2022-07-28] MEDS: ACETAMINOPHEN 325 MG TABLET (FP) PO PRN (18:32)
[2022-07-28] MEDS: MELATONIN 5 MG TABLETS PO SCH (21:59)
[2022-07-28] MEDS: THIAMINE HCL 100 MG TABLET (FP) PO SCH (21:59)
[2022-07-29] MEDS: ACETAMINOPHEN 325 MG TABLET (FP) PO PRN (07:51)
[2022-07-29] MEDS: PRENATAL VITAMINS W/ FOLIC ACID TABLET (FP) PO SCH (10:05)
[2022-07-29] MEDS: ASPIRIN 325 MG TABLET PO SCH (10:05)
[2022-07-29] MEDS: THIAMINE HCL 100 MG TABLET (FP) PO SCH (21:07)
[2022-07-29] MEDS: MELATONIN 5 MG TABLETS PO SCH (21:07)
[2022-07-30] MEDS: IBUPROFEN 400 MG TABLET (FP) PO PRN (05:56)
[2022-07-30] MEDS: hydrOXYzine PAMOATE 25 MG CAPSULE (FP) PO PRN (05:57)
[2022-07-30] MEDS: PRENATAL VITAMINS W/ FOLIC ACID TABLET (FP) PO SCH (10:36)
[2022-07-30] MEDS: ASPIRIN 325 MG TABLET PO SCH (10:36)
[2022-07-30] MEDS: MELATONIN 5 MG TABLETS PO SCH (21:35)
[2022-07-30] MEDS: THIAMINE HCL 100 MG TABLET (FP) PO SCH (21:35)
[2022-07-31] MEDS: ASPIRIN 325 MG TABLET PO SCH (11:05)
[2022-07-31] MEDS: PRENATAL VITAMINS W/ FOLIC ACID TABLET (FP) PO SCH (11:05)
[2022-07-31] MEDS: IBUPROFEN 400 MG TABLET (FP) PO PRN (18:32)
[2022-07-31] MEDS: MELATONIN 5 MG TABLETS PO SCH (21:14)
[2022-07-31] MEDS: THIAMINE HCL 100 MG TABLET (FP) PO SCH (21:14)
[2022-08-01] MEDS: PRENATAL VITAMINS W/ FOLIC ACID TABLET (FP) PO SCH (09:47)
[2022-08-01] MEDS: IBUPROFEN 400 MG TABLET (FP) PO PRN (09:48)
[2022-08-01] MEDS: ASPIRIN 325 MG TABLET PO SCH (09:48)
[2022-08-01] MEDS: MELATONIN 5 MG TABLETS PO SCH (21:59)
[2022-08-01] MEDS: THIAMINE HCL 100 MG TABLET (FP) PO SCH (21:59)
[2022-08-02 06:53] VITALS: BP 114/85; PULSE 96; TEMP 98
== END 2022-08-02 08:16 | disposition home or self-care (01) | DRG 772 ==
LOC: YASAS 14:23 → Y3W 16:50
PROVIDERS: ADMIT Allergy & Immunology; ATTEND Psychiatry & Neurology Pain Medicine
PROC: HZ42ZZZ Group Counseling for Substance Abuse Treatment, Cognitive-Behavioral (ICD-10-PCS; principal; 2022-07-19)
DX: F11.20 Opioid dependence, uncomplicated (principal); F14.20 Cocaine dependence, uncomplicated; L03.113 Cellulitis of right upper limb; L85.3 Xerosis cutis; S52.501D Unspecified fracture of the lower end of right radius, subsequent encounter for closed fracture with routine healing; X58.XXXD Exposure to other specified factors, subsequent encounter
CPT/HCPCS: 36415; 71046-TC-FY; 80053; 81003; 85027

== ENCOUNTER 2023-01-26 13:07 | Inpatient (IN) | payer OTHER ==
[2023-01-26 13:29] VITALS: BMI 20.5
[2023-01-26] MEDS ORDERED: guaiFENesin 600 MG TABLET.ER (FP) PO PRN (17:10)
[2023-01-26] MEDS ORDERED: NALOXONE HCL 0.4 MG/ML VIAL IM PRN (17:10)
[2023-01-26] MEDS ORDERED: BENZONATATE 200 MG CAPSULE PO PRN (17:10)
[2023-01-26] MEDS ORDERED: DICYCLOMINE HCL 10 MG CAPSULE PO PRN (17:10)
[2023-01-26] MEDS ORDERED: IBUPROFEN 400 MG TABLET (FP) PO PRN (17:10)
[2023-01-26] MEDS ORDERED: NICOTINE 10 MG CARTRIDGE (INHALER) IH PRN (17:10)
[2023-01-26] MEDS ORDERED: ONDANSETRON *ODT* 4 MG TABLET SL PRN (17:10)
[2023-01-26] MEDS ORDERED: MAGNESIUM HYDROX 2400MG/30ML ORAL SUSPENSION 30 ML CUP PO PRN (17:10)
[2023-01-26] MEDS ORDERED: LOPERAMIDE HCL 2 MG CAPSULE PO PRN (17:10)
[2023-01-26] MEDS ORDERED: NALOXONE HCL (KLOXXADO) 8 MG SPRAY NS PRN (17:10)
[2023-01-26] MEDS ORDERED: IBUPROFEN 600 MG TABLET (FP) PO PRN (17:10)
[2023-01-26] MEDS ORDERED: MAG HYDROX/AL HYDROX/SIMETH 30 ML UNIT-DOSE CUP PO PRN (17:10)
[2023-01-26] MEDS ORDERED: BISMUTH SUBSALICYLATE 524 MG/30 ML PO PRN (17:10)
[2023-01-26] MEDS ORDERED: NICOTINE POLACRILEX 2 MG GUM BUC PRN (17:10)
[2023-01-26] MEDS ORDERED: METHOCARBAMOL 500 MG TABLET PO PRN (17:10)
[2023-01-26] MEDS ORDERED: hydrOXYzine PAMOATE 25 MG CAPSULE (FP) PO PRN (17:10)
[2023-01-26] MEDS ORDERED: BENZOCAINE/MENTHOL (CHLORASEPTIC ) LOZENGE MM PRN (17:10)
[2023-01-26] MEDS ORDERED: ACETAMINOPHEN 325 MG TABLET (FP) PO PRN (17:10)
[2023-01-26] MEDS ORDERED: POLYETHYLENE GLYCOL (HEALTHYLAX) 3350 17 GM PACKET PO PRN (17:10)
[2023-01-26] MEDS ORDERED: methaDONE HCL 10 MG TABLET (FOR DETOX USE ONLY) PO ONE (17:15)
[2023-01-26] MEDS ORDERED: methaDONE HCL 10 MG TABLET (FOR DETOX USE ONLY) ONE (17:32)
[2023-01-26] MEDS: MELATONIN 5 MG TABLETS PO SCH (23:15)
[2023-01-26] MEDS: THIAMINE HCL 100 MG TABLET (FP) PO SCH (23:15)
[2023-01-27] MEDS: PRENATAL VITAMINS W/ FOLIC ACID TABLET (FP) PO SCH (10:16)
[2023-01-27] MEDS: NICOTINE 21 MG/24 HOURS TOPICAL PATCH TD SCH (10:16)
[2023-01-27 11:57] LABS: HEMATOCRIT 37.6 % (35.4-49); HEMOGLOBIN 12.1 GM/dL (11.7-16.9); MCH 22.8 pg (25.7-33.7); MCHC 32.1 g/dl (32.0-35.9); MEAN PLT VOLUME 7.8 fl (7.5-11.1); PLATELET COUNT 397 10^3/uL (134-434); RDW 17.6 % (11.9-15.9)
[2023-01-27 11:58] LABS: POTASSIUM 4.4 mmol/L (3.5-5.1)
[2023-01-27 12:07] LABS: ALBUMIN 2.5 g/dl (3.4-5.0); BLOOD UREA NITROGEN 17.2 mg/dL (7-18)
[2023-01-27 12:10] LABS: CALCIUM 7.9 mg/dL (8.5-10.1); CREATININE 0.9 mg/dL (0.55-1.3)
[2023-01-27 12:11] LABS: BILIRUBIN,TOTAL 0.2 mg/dL (0.2-1); TOT PROT 5.6 g/dl (6.4-8.2)
[2023-01-27 12:26] LABS: WHITE BLOOD COUNT 10.2 K/mm3 (4.0-10.0)
[2023-01-27] MEDS: MELATONIN 5 MG TABLETS PO SCH (22:56)
[2023-01-27] MEDS: THIAMINE HCL 100 MG TABLET (FP) PO SCH (22:57)
[2023-01-28] MEDS ORDERED: methaDONE HCL 10 MG TABLET (FOR DETOX USE ONLY) PO ONE (10:00)
[2023-01-28] MEDS: NICOTINE 21 MG/24 HOURS TOPICAL PATCH TD SCH (10:14)
[2023-01-28] MEDS: PRENATAL VITAMINS W/ FOLIC ACID TABLET (FP) PO SCH (10:15)
[2023-01-28 12:35] LABS: BASO % 1.4 % (0-2.0); EOS % 8.9 % (0-4.5); HEMATOCRIT 37.6 % (35.4-49); HEMOGLOBIN 12.1 GM/dL (11.7-16.9); LYMPH % 24.1 % (8-40); MCH 22.9 pg (25.7-33.7); MCHC 32.3 g/dl (32.0-35.9); MEAN CELL VOLUME 70.7 fl (80-96); MEAN PLT VOLUME 7.5 fl (7.5-11.1); MONO % 7.6 % (3.8-10.2); PLATELET COUNT 633 10^3/uL (134-434); RBC 5.31 M/mm3 (4.00-5.60); RDW 17.6 % (11.9-15.9); WHITE BLOOD COUNT 7.5 K/mm3 (4.0-10.0)
[2023-01-28] MEDS: MELATONIN 5 MG TABLETS PO SCH (22:29)
[2023-01-28] MEDS: THIAMINE HCL 100 MG TABLET (FP) PO SCH (22:29)
[2023-01-29 09:26] VITALS: BP 120/61; PULSE 76; RESP 18; TEMP 98
[2023-01-29] MEDS: PRENATAL VITAMINS W/ FOLIC ACID TABLET (FP) PO SCH (10:21)
[2023-01-29] MEDS: NICOTINE 21 MG/24 HOURS TOPICAL PATCH TD SCH (10:22)
== END 2023-01-29 12:45 | disposition other institution (70) | DRG 773 ==
LOC: YASAS 13:07 → Y6N 17:28
PROVIDERS: ADMIT Allergy & Immunology; ATTEND Surgery
PROC: HZ2ZZZZ Detoxification Services for Substance Abuse Treatment (ICD-10-PCS; principal; 2023-01-26)
DX: F11.23 Opioid dependence with withdrawal (principal); F14.20 Cocaine dependence, uncomplicated; F17.210 Nicotine dependence, cigarettes, uncomplicated; R76.11 Nonspecific reaction to tuberculin skin test without active tuberculosis; Z86.19 Personal history of other infectious and parasitic diseases
CPT/HCPCS: 36415; 80053; 82310; 85025; 85027; 86593; 86780; 87811; C9803-CS; U0003; U0005

== ENCOUNTER 2023-01-29 14:13 | Inpatient (IN) | payer OTHER ==
[2023-01-29 14:43] VITALS: RESP 18
[2023-01-29] MEDS ORDERED: COLLOIDAL OATMEAL 1 BAR EACH TP PRN (19:44)
[2023-01-29] MEDS ORDERED: MAG HYDROX/AL HYDROX/SIMETH 30 ML UNIT-DOSE CUP PO PRN (19:44)
[2023-01-29] MEDS ORDERED: hydrOXYzine PAMOATE 25 MG CAPSULE (FP) PO PRN (19:44)
[2023-01-29] MEDS ORDERED: LOPERAMIDE HCL 2 MG CAPSULE PO PRN (19:44)
[2023-01-29] MEDS ORDERED: NALOXONE HCL (KLOXXADO) 8 MG SPRAY NS PRN (19:44)
[2023-01-29] MEDS ORDERED: MAGNESIUM HYDROX 2400MG/30ML ORAL SUSPENSION 30 ML CUP PO PRN (19:44)
[2023-01-29] MEDS ORDERED: BENZOCAINE/MENTHOL (CHLORASEPTIC ) LOZENGE MM PRN (19:44)
[2023-01-29] MEDS ORDERED: BENZONATATE 200 MG CAPSULE PO PRN (19:44)
[2023-01-29] MEDS ORDERED: IBUPROFEN 600 MG TABLET (FP) PO PRN (19:44)
[2023-01-29] MEDS ORDERED: AMMONIUM LACTATE 12% LOTION 225 GM BOTTLE TP PRN (19:44)
[2023-01-29] MEDS ORDERED: P-EPHED 60MG/TRIPROLIDI 2.5MG TABLET PO PRN (19:44)
[2023-01-29] MEDS ORDERED: NALOXONE HCL 0.4 MG/ML VIAL IVPUSH PRN (19:44)
[2023-01-29] MEDS ORDERED: ACETAMINOPHEN 325 MG TABLET (FP) PO PRN (19:44)
[2023-01-29] MEDS ORDERED: IBUPROFEN 400 MG TABLET (FP) PO PRN (19:44)
[2023-01-29] MEDS ORDERED: METHOCARBAMOL 500 MG TABLET PO PRN (19:44)
[2023-01-29] MEDS ORDERED: NICOTINE POLACRILEX 2 MG GUM BUC PRN (19:44)
[2023-01-29] MEDS ORDERED: POLYETHYLENE GLYCOL (HEALTHYLAX) 3350 17 GM PACKET PO PRN (19:44)
[2023-01-29] MEDS ORDERED: guaiFENesin 600 MG TABLET.ER (FP) PO PRN (19:44)
[2023-01-29] MEDS ORDERED: NALOXONE (NARCAN) HCL 4 MG/0.1 ML SPRAY NS SCH (19:45)
[2023-01-29] MEDS: MELATONIN 5 MG TABLETS PO SCH (22:21)
[2023-01-29] MEDS: THIAMINE HCL 100 MG TABLET (FP) PO SCH (22:22)
[2023-01-30] MEDS: PRENATAL VITAMINS W/ FOLIC ACID TABLET (FP) PO SCH (10:21)
[2023-01-30] MEDS: LIDOCAINE 5% TOPICAL PATCH TP SCH (10:54)
[2023-01-30] MEDS: THIAMINE HCL 100 MG TABLET (FP) PO SCH (21:46)
[2023-01-30] MEDS: MELATONIN 5 MG TABLETS PO SCH (21:46)
[2023-01-30] MEDS: LIDOCAINE PATCH REMOVAL MC SCH (21:46)
[2023-01-31] MEDS: PRENATAL VITAMINS W/ FOLIC ACID TABLET (FP) PO SCH (10:04)
[2023-01-31] MEDS: LIDOCAINE 5% TOPICAL PATCH TP SCH (10:04)
[2023-01-31] MEDS: THIAMINE HCL 100 MG TABLET (FP) PO SCH (22:18)
[2023-01-31] MEDS: LIDOCAINE PATCH REMOVAL MC SCH (22:18)
[2023-01-31] MEDS: MELATONIN 5 MG TABLETS PO SCH (22:18)
[2023-02-01] MEDS: PRENATAL VITAMINS W/ FOLIC ACID TABLET (FP) PO SCH (10:05)
[2023-02-01] MEDS: LIDOCAINE 5% TOPICAL PATCH TP SCH (10:05)
[2023-02-01] MEDS: THIAMINE HCL 100 MG TABLET (FP) PO SCH (21:48)
[2023-02-01] MEDS: MELATONIN 5 MG TABLETS PO SCH (21:48)
[2023-02-01] MEDS: LIDOCAINE PATCH REMOVAL MC SCH (22:10)
[2023-02-02] MEDS: LIDOCAINE 5% TOPICAL PATCH TP SCH (10:38)
[2023-02-02] MEDS: PRENATAL VITAMINS W/ FOLIC ACID TABLET (FP) PO SCH (10:38)
[2023-02-02] MEDS: MELATONIN 5 MG TABLETS PO SCH (21:46)
[2023-02-02] MEDS: LIDOCAINE PATCH REMOVAL MC SCH (21:46)
[2023-02-02] MEDS: THIAMINE HCL 100 MG TABLET (FP) PO SCH (21:46)
[2023-02-03] MEDS: LIDOCAINE 5% TOPICAL PATCH TP SCH (10:11)
[2023-02-03] MEDS: PRENATAL VITAMINS W/ FOLIC ACID TABLET (FP) PO SCH (10:11)
[2023-02-03] MEDS: THIAMINE HCL 100 MG TABLET (FP) PO SCH (22:43)
[2023-02-03] MEDS: MELATONIN 5 MG TABLETS PO SCH (22:43)
[2023-02-03] MEDS: LIDOCAINE PATCH REMOVAL MC SCH (22:43)
[2023-02-04] MEDS: PRENATAL VITAMINS W/ FOLIC ACID TABLET (FP) PO SCH (10:08)
[2023-02-04] MEDS: LIDOCAINE 5% TOPICAL PATCH TP SCH (10:09)
[2023-02-04] MEDS: THIAMINE HCL 100 MG TABLET (FP) PO SCH (21:28)
[2023-02-04] MEDS: MELATONIN 5 MG TABLETS PO SCH (21:29)
[2023-02-04] MEDS: LIDOCAINE PATCH REMOVAL MC SCH (21:29)
[2023-02-05] MEDS: PRENATAL VITAMINS W/ FOLIC ACID TABLET (FP) PO SCH (09:52)
[2023-02-05] MEDS: LIDOCAINE 5% TOPICAL PATCH TP SCH (09:52)
[2023-02-05] MEDS: MELATONIN 5 MG TABLETS PO SCH (21:14)
[2023-02-05] MEDS: THIAMINE HCL 100 MG TABLET (FP) PO SCH (21:14)
[2023-02-05] MEDS: LIDOCAINE PATCH REMOVAL MC SCH (21:14)
[2023-02-06] MEDS: LIDOCAINE 5% TOPICAL PATCH TP SCH (10:09)
[2023-02-06] MEDS: PRENATAL VITAMINS W/ FOLIC ACID TABLET (FP) PO SCH (10:09)
[2023-02-06] MEDS: LIDOCAINE PATCH REMOVAL MC SCH (21:44)
[2023-02-06] MEDS: THIAMINE HCL 100 MG TABLET (FP) PO SCH (21:44)
[2023-02-06] MEDS: MELATONIN 5 MG TABLETS PO SCH (21:44)
[2023-02-07] MEDS: LIDOCAINE 5% TOPICAL PATCH TP SCH (10:21)
[2023-02-07] MEDS: PRENATAL VITAMINS W/ FOLIC ACID TABLET (FP) PO SCH (10:21)
[2023-02-07] MEDS: MELATONIN 5 MG TABLETS PO SCH (21:41)
[2023-02-07] MEDS: THIAMINE HCL 100 MG TABLET (FP) PO SCH (21:41)
[2023-02-07] MEDS: LIDOCAINE PATCH REMOVAL MC SCH (21:41)
[2023-02-08] MEDS: PRENATAL VITAMINS W/ FOLIC ACID TABLET (FP) PO SCH (10:37)
[2023-02-08] MEDS: LIDOCAINE 5% TOPICAL PATCH TP SCH (10:37)
[2023-02-08] MEDS: THIAMINE HCL 100 MG TABLET (FP) PO SCH (23:44)
[2023-02-08] MEDS: MELATONIN 5 MG TABLETS PO SCH (23:44)
[2023-02-09] MEDS: LIDOCAINE PATCH REMOVAL MC SCH ×2 (00:03→21:30)
[2023-02-09] MEDS: LIDOCAINE 5% TOPICAL PATCH TP SCH (10:47)
[2023-02-09] MEDS: PRENATAL VITAMINS W/ FOLIC ACID TABLET (FP) PO SCH (10:47)
[2023-02-09] MEDS: THIAMINE HCL 100 MG TABLET (FP) PO SCH (21:29)
[2023-02-09] MEDS: MELATONIN 5 MG TABLETS PO SCH (21:29)
[2023-02-10 07:18] VITALS: BP 105/62; PULSE 98; TEMP 97.2
== END 2023-02-10 09:20 | disposition home or self-care (01) | DRG 772 ==
LOC: YASAS 14:13 → Y5N 14:15
PROVIDERS: ADMIT Allergy & Immunology; ATTEND Psychiatry & Neurology Pain Medicine
PROC: HZ42ZZZ Group Counseling for Substance Abuse Treatment, Cognitive-Behavioral (ICD-10-PCS; principal; 2023-01-29)
DX: F11.20 Opioid dependence, uncomplicated (principal); F14.20 Cocaine dependence, uncomplicated; F17.210 Nicotine dependence, cigarettes, uncomplicated; M70.32 Other bursitis of elbow, left elbow; Y93.9 Activity, unspecified; R07.89 Other chest pain; Z86.19 Personal history of other infectious and parasitic diseases